=== PATIENT | male | born 1955 | race Caucasian/White ===

== ENCOUNTER 2023-02-11 06:06 | Day surgery (SDC) | payer MEDICARE ==
[2023-02-09 14:00] VITALS: BMI 33.5
[2023-02-11] MEDS ORDERED: Ketamine In 0.9 % NaCl 50 MG/5 ML SYRINGE ONE (07:38)
[2023-02-11] MEDS ORDERED: PHENYLEPHRINE-NS 100 MCG/ML 10 ML SYRINGE ONE (08:03)
[2023-02-11] MEDS ORDERED: PROPOFOL 200 MG/20 ML VIAL ONE (08:03)
== END 2023-02-11 09:37 | disposition home or self-care (01) ==
LOC: SDC 06:06
PROVIDERS: ATTEND Internal Medicine Gastroenterology
PROC: 0DJ08ZZ Inspection of Upper Intestinal Tract, Via Natural or Artificial Opening Endoscopic (ICD-10-PCS; principal; 2023-02-11)
PROC: 3E0H8GC Introduction of Other Therapeutic Substance into Lower GI, Via Natural or Artificial Opening Endoscopic (ICD-10-PCS; 2023-02-11)
PROC: 0DBN8ZX Excision of Sigmoid Colon, Via Natural or Artificial Opening Endoscopic, Diagnostic (ICD-10-PCS; 2023-02-11)
DX: C18.7 Malignant neoplasm of sigmoid colon (principal); D12.5 Benign neoplasm of sigmoid colon; K21.9 Gastro-esophageal reflux disease without esophagitis; K57.30 Diverticulosis of large intestine without perforation or abscess without bleeding; M19.90 Unspecified osteoarthritis, unspecified site; Z88.2 Allergy status to sulfonamides
CPT/HCPCS: 88305; J2704; J3490

== ENCOUNTER 2023-03-17 08:05 | Observation (INO) | payer MEDICARE ==
[2023-03-16 09:51] VITALS: BMI 36.2
[2023-03-17] MEDS ORDERED: fentaNYL 50 mcg/mL 1 mL Vial ONE ×2 (10:34→13:04)
[2023-03-17] MEDS ORDERED: Iopamidol 15 ML ONE (10:35)
[2023-03-17] MEDS ORDERED: SUGAMMADEX SODIUM 200 MG/2 ML VIAL ONE (10:35)
[2023-03-17] MEDS ORDERED: Indomethacin 50 MG SUPP ONE (10:36)
[2023-03-17] MEDS ORDERED: Levofloxacin 500 mg/D5W 100 ml Premix Bag ONE (10:48)
[2023-03-17] MEDS ORDERED: PROPOFOL 200 MG/20 ML VIAL ONE (10:53)
[2023-03-17] MEDS ORDERED: Dexamethasone 20 MG/5 ML VIAL ONE (10:53)
[2023-03-17] MEDS ORDERED: Ondansetron PF 4 MG/2 ML Vial ONE (10:53)
[2023-03-17] MEDS ORDERED: Rocuronium Bromide 10 MG/ML (10ML VIAL) ONE (10:53)
[2023-03-17] MEDS ORDERED: Lidocaine 1% PF 5 ML VIAL ONE (10:53)
[2023-03-17] MEDS ORDERED: PHENYLEPHRINE-NS 100 MCG/ML 10 ML SYRINGE ONE (10:53)
[2023-03-17] MEDS ORDERED: Succinylcholine 200 MG/10 ml SYRINGE FS ONE (10:53)
[2023-03-17] MEDS ORDERED: Iopamidol 30 ML ONE (12:13)
[2023-03-17] MEDS ORDERED: Ondansetron PF 4 MG/2 ML Vial IVP PRN (21:16)
[2023-03-17] MEDS ORDERED: hydrALAZINE 20 MG/ML VIAL SLOW IVP PRN (21:23)
[2023-03-17] MEDS ORDERED: Acetaminophen 650 MG/20.3 ML UDCUP PO PRN (21:23)
[2023-03-17] MEDS ORDERED: Pantoprazole 40 MG VIAL IVP SCH (21:30)
[2023-03-17] MEDS: Lactated Ringer's 1,000 ML IV SCH (21:33)
[2023-03-18] MEDS: Lactated Ringer's 1,000 ML IV SCH (01:14)
[2023-03-18 06:42] LABS: #Monocytes 0.9 thou/uL (0.11-0.59); #Neutrophils 12.5 thou/uL (1.40-6.50); %Basophils 0.1 % (0.0-1.0); %Lymphocytes 7.9 % (21.0-51.0); %Monocytes 6.1 % (0.0-10.0); %Neutrophils 85.3 % (42.0-75.0); Hemoglobin 15.5 g/dL (14.0-18.0); Mean Corpuscular HGB CONC 34.3 g/dL (32.0-36.0); Mean Corpuscular Hemoglobin 30.9 pg (27.0-31.0); Mean Platelet Volume 9.3 fL (7.4-10.4); Platelet Count 226 10x3/uL (130-400); RBC Distribution Width 13.2 % (11.5-14.5); Red Blood Cell (RBC) Count 5.02 mill/uL (4.70-6.10); White Blood Cell (WBC) Count 14.7 10x3/uL (4.8-10.8)
[2023-03-18 07:17] LABS: ALT (SGPT) 158 U/L (8-55); AST (SGOT) 116 U/L (5-34); Albumin 3.9 g/dL (3.4-4.8); Alkaline Phosphatase 70 U/L (40-110); Anion Gap 14 mmol/L (10-20); BUN (Urea Nitrogen) 15 mg/dL (8.4-25.7); Bilirubin, Total 1.2 mg/dL (0.2-1.2); Calc. Creatinine Clearance 152 mL/min (70-130); Calcium 9.1 mg/dL (7.8-10.44); Carbon Dioxide 22 mmol/L (23-31); Chloride 106 mmol/L (98-107); Estimated GFR 98; Globulin 2.7 g/dL (2.4-3.5); Glucose 135 mg/dL (80-115); Potassium 4.2 mmol/L (3.5-5.1); Protein, Total 6.6 g/dL (5.8-8.1); Sodium 138 mmol/L (136-145)
[2023-03-18 07:30] LABS: Lipase 1777 U/L (8-78)
[2023-03-18] MEDS ORDERED: Lactated Ringer's 1,000 ML IV SCH (09:00)
[2023-03-18 12:21] VITALS: BP 174/82; TEMP 97.6
== END 2023-03-18 14:58 | disposition home or self-care (01) ==
LOC: SDC 08:05 → T4-B 18:54
PROVIDERS: ADMIT Internal Medicine Gastroenterology; ATTEND Internal Medicine Gastroenterology
PROC: 0FC98ZZ Extirpation of Matter from Common Bile Duct, Via Natural or Artificial Opening Endoscopic (ICD-10-PCS; principal; 2023-03-17)
DX: K80.50 Calculus of bile duct without cholangitis or cholecystitis without obstruction (principal); K21.9 Gastro-esophageal reflux disease without esophagitis; Z90.49 Acquired absence of other specified parts of digestive tract; Z96.659 Presence of unspecified artificial knee joint; Z88.2 Allergy status to sulfonamides
CPT/HCPCS: 43262; 43265; 74330; 80053; 83690 ×2; 85025; C1725; J3010; 36415; 96374; C9113; G0378; J1100; J1956; J2405; J2704; J7120; Q9967